=== PATIENT | male | born 1940 | race Caucasian/White ===

== ENCOUNTER 2018-06-21 11:30 | Emergency (ER) | payer MEDICARE ==
[~2018-06-21] VITALS: Ht 177.8 cm; Wt 65.8 kg
[2018-06-21 11:45] VITALS: BP 130/57
--- NOTE | 2018-06-21 11:45 | ED.ADGEN ---
Past History Past Medical History: DVT Smoking: Non-smoker Social History Lives with Adult General Chief Complaint Chief Complaint Left knee pain, left leg and foot swelling HPI HPI This is 78-year-old man with a history of prior DVT who presents with complaints of left leg swelling since yesterday. Patient has had left knee pain and swelling over the last 10 days and after driving 800 miles from [place] yesterday, he noted onset of left lower leg and foot swelling. Denies any injury. He denies any chest pain or shortness of breath. He denies history of gout. Review of Systems Review of Systems Constitutional: Denies fever or chills Eyes: Denies change in visual acuity, redness, or eye pain HENT: Denies nasal congestion or sore throat Respiratory: Denies cough or shortness of breath Cardiovascular: Denies chest pain or palpitations GI: Denies abdominal pain, nausea, vomiting, bloody stools or diarrhea : Denies dysuria or hematuria Musculoskeletal: Denies back pain, with complaints of left knee pain and swelling, left leg and foot swelling. Integument: Denies rash or skin lesions Neurologic: Denies headache, focal weakness or sensory changes Endocrine: Denies polyuria or polydipsia All other systems were reviewed and found to be within normal limits, except as documented in this note. Allergies Allergies Allergies Coded Allergies Type Severity Reaction Last Updated Verified No Known Drug Allergies 06/21/18 No Physical Exam Physical Exam Constitutional: Well developed, well nourished, no acute distress, non-toxic appearance. HENT: Normocephalic, atraumatic, bilateral external ears normal, oropharynx moist, no oral exudates, nose normal. Eyes: PERRLA, EOMI, conjunctiva normal, no discharge. Neck: Normal range of motion, no tenderness, supple, no stridor. Cardiovascular:Heart rate regular rhythm, no murmur Lungs & Thorax: Bilateral breath sounds clear to auscultation Abdomen: Bowel sounds normal, soft, no tenderness, no masses, no pulsatile masses. Skin: Warm, dry, no erythema, no rash. Back: No tenderness, no CVA tenderness. Extremities: Left knee anterior tenderness and swelling, no cyanosis, no clubbing, ROM intact, with left lower leg and pedal edema. Left ankle intact to varus valgus stress, no drawer signs. Left knee intact to varus and valgus stress, negative anterior posterior drawer signs. Left DP pulse 2+. Distal sensation intact to light touch and position sense. Neurologic: Alert and oriented X 3, normal motor function, normal sensory function, no focal deficits noted. Psychologic: Affect normal, judgement normal, mood normal. Current Patient Data Vital Signs Vital Signs Date Time Temp Pulse Resp B/P (MAP) Pulse Ox O2 Delivery O2 Flow Rate FiO2 06/21/18 11:45 54 18 98 Room Air EKG EKG [] Radiology/Procedures Radiology/[place] [address] IMAGING REPORT Signed PATIENT: BETTY FORDE ACCOUNT: [id number] : 1940 LOCATION: ER AGE: 78 SEX: M EXAM STATUS: PRE ER ORD. PHYSICIAN: HELENA PRICE MD REASON: pain PROCEDURE: KNEE LEFT 3V 3 views left knee AP lateral oblique HISTORY: Left knee pain for one week There is chondrocalcinosis. There is vascular calcification. There is minimal marginal spurring. There is a small joint effusion on the lateral view. There is no lytic destructive changes. IMPRESSION: Small joint effusion. Electronically signed by: Arnel Hart III, MD (06/21/2018 12:23 PM) [facility] DICTATED AND SIGNED BY: ARNEL HART III, MD DATE: 06/21/18 1222 CC: HELENA PRICE MD ~ [address] [address] IMAGING REPORT Signed PATIENT: BETTY FORDE ACCOUNT: [id number] : 1940 LOCATION: ER AGE: 78 SEX: M EXAM STATUS: PRE ER ORD. PHYSICIAN: HELENA PRICE MD REASON: leg swelling PROCEDURE: VENOUS LOWER EXTREMITY LEFT Left Lower Extremity Venous Doppler Ultrasound History: Left leg swelling for a couple days Comparison: None Procedure: Color flow, duplex, spectral analysis and 2D images are obtained with and without compression in the area of the common femoral vein, superficial femoral vein - femoral vein junction, main femoral vein (superficial femoral vein) and popliteal vein. Veins of the proximal calf are also imaged. Findings: There is normal duplex flow, color flow and compressibility of all visualized vein segments. No evidence of deep venous thrombus is present. There is a joint effusion. Impression: No evidence of DVT. Small joint effusion. Electronically signed by: Arnel Hart III, MD (06/21/2018 12:48 PM) [facility] DICTATED AND SIGNED BY: ARNEL HART III, MD DATE: 06/21/18 1241 CC: HELENA PRICE MD ~ Course & Med Decision Making Course & Med Decision Making Patient presents with left knee pain and swelling left leg and foot swelling DDx- DVT, sprain, dependent edema, venous insufficiency The patient was stable in the ED. Left nee x-rays showed DJD, no fracture. Left leg duplex Doppler showed no DVT. The patient's left ankle and foot swelling likely seconday to dependent edema. Patient was placed in left knee immobilizer. DNVI. Patient was given prescription of Medrol dose pack for left knee pain and swelling which is likely from DJD. Patient will follow-up with PCP/Orthopedic for further evaluation. Final Impression Final Impression Clinical Impression Left knee DJD Left knee effusion Left ankle and foot edema Dragon Disclaimer Dragon Disclaimer This electronic medical record was generated, in whole or in part, using a voice recognition dictation system. Departure Departure: Impression: Primary Impression: Arthritis of left knee Additional Impressions: Effusion of left knee joint Leg edema, left Disposition: HOME, SELF-CARE Condition: STABLE Referrals: [facility] Follow-up on Saturday for further evaluation Patient Instructions: Knee - Wear and Tear Disorders, Knee Effusion, Knee Immobilization Scripts Methylprednisolone (MEDROL) 4 Mg Tab.ds.pk 1 PKG PO UD, #1 PKG Prov: HELENA PRICE MD 06/21/18 HELENA PRICE MD Jun 21, 2018 11:45
--- NOTE | 2018-06-21 12:26 | RAD ---
3 views left knee AP lateral oblique HISTORY: Left knee pain for one week There is chondrocalcinosis. There is vascular calcification. There is minimal marginal spurring. There is a small joint effusion on the lateral view. There is no lytic destructive changes. IMPRESSION: Small joint effusion. Electronically signed by: Julio Cesar Hart III, MD (06/21/2018 12:23 PM) [facility]
--- NOTE | 2018-06-21 12:52 | RAD ---
Left Lower Extremity Venous Doppler Ultrasound History: Left leg swelling for a couple days Comparison: None Procedure: Color flow, duplex, spectral analysis and 2D images are obtained with and without compression in the area of the common femoral vein, superficial femoral vein - femoral vein junction, main femoral vein (superficial femoral vein) and popliteal vein. Veins of the proximal calf are also imaged. Findings: There is normal duplex flow, color flow and compressibility of all visualized vein segments. No evidence of deep venous thrombus is present. There is a joint effusion. Impression: No evidence of DVT. Small joint effusion. Electronically signed by: Julio Cesar Hart III, MD (06/21/2018 12:48 PM) [facility]
[2018-06-21] MEDS ORDERED: METH4TAB2 PO (13:41)
== END 2018-06-21 13:50 | disposition home or self-care (01) ==
LOC: ER 11:30
DX: M17.12 Unilateral primary osteoarthritis, left knee (principal); R60.0 Localized edema; Z86.718 Personal history of other venous thrombosis and embolism
CPT/HCPCS: 29505; 73562; 93971; 99284